=== PATIENT | female | born 1950 | race African-American/Black ===

== ENCOUNTER 2016-07-21 13:33 | Inpatient (IN) | payer OTHER, MEDICARE ==
[~2016-07-21] VITALS: Ht 162.6 cm; Wt 105.1 kg
[2016-08-10] MEDS ORDERED: MECL-62 PO (12:22)
[2016-08-10] MEDS ORDERED: AMOX500C PO (12:22)
[2016-08-10] MEDS ORDERED: INDO25CA PO (12:22)
[2016-08-10] MEDS ORDERED: ROBA750T PO (12:22)
[2016-08-10] MEDS ORDERED: ACET300T2 PO (12:22)
[2016-08-10] MEDS ORDERED: EPIN1INJ17 IM (12:22)
[2016-08-10] MEDS ORDERED: VENTAER INH (12:22)
[2016-08-10] MEDS ORDERED: TRIA1TAB5 PO (12:22)
--- NOTE | 2016-08-12 15:21 | MH ---
cc: DENEENOPALJAMIE Randall DATE OF ADMISSION: 08/13/2016 ADMISSION DIAGNOSIS Osteoarthritis of the right knee. HISTORY OF PRESENT ILLNESS This patient is a 66-year-old female who has longstanding arthritis in both of her knees. She feels the left is worse than right but both of them are fairly significant. The patient has had multiple falls and injuries to her knees. The patient had arthroscopic surgery right knee in the which did not relieve very much of her pain. The patient takes oral medications. The patient has had multiple cortisone injections but declines any further injections due to memory loss. The patient moved to this area from [facility] which she has had many years of conservative care. She is now felt to be a candidate for surgical treatment. PAST MEDICAL HISTORY See attached notes. SOCIAL HISTORY See attached notes. FAMILY HISTORY See attached notes. REVIEW OF SYSTEMS See attached notes. PHYSICAL EXAMINATION VITAL SIGNS: 5 feet 4 inches, 224 pounds, BMI 38.5. Blood pressure 138/84. HEENT: Normocephalic, atraumatic. Pupils equal, round and reactive to light and accommodation. Extraocular muscles intact. NECK: Supple. CHEST: Clear. HEART: Regular rate and rhythm. ABDOMEN: Soft, nontender. Normoactive bowel sounds. MUSCULOSKELETAL: The patient is an average build, overweight female. She is in moderate distress with her knees. HEENT: Normocephalic, atraumatic. Pupils equal, round and reactive to light and accommodation. Extraocular muscles intact. NECK: Supple. CHEST: Clear. HEART: Regular rate and rhythm. ABDOMEN: Soft, nontender. Normoactive bowel sounds. EXTREMITIES: Right Knee: There is an effusion, restricted range of motion. Flexion is limited on the right to 85 degrees. There is a 5 degree flexion contracture. Range of motion left knee is extension -5, flexion 95. Significant crepitus throughout range of motion. Neurologic and vascular examinations are within normal limits. IMPRESSION Osteoarthritis of both knees, severe. PLAN Right total knee replacement arthroplasty. CONSENT There are risks with surgery including infection, bleeding, loss of motion, continued pain, need for further surgery, neurologic or vascular injury. The patient understands these issues and wishes to press on with surgery as outlined above. Jamie MD ZI Garcia/THANH /1:56 PM /3:16 PM
[2016-08-13] MEDS ORDERED: CHLORHEXIDINE GLUCONATE 4% SOLN 120 ML BTL TOPICAL SCH (06:45)
[2016-08-13] MEDS ORDERED: ceFAZolin 2 GM PREMIX 50 ML IV SCH (06:45)
[2016-08-13] MEDS ORDERED: EXPAREL PERI-ARTICULAR INJECTION (TOTAL VOL. 60 ML) P-ARTICULR SCH ×2 (06:45)
[2016-08-13] MEDS ORDERED: VANCOMYCIN 1000 MG/NS 250 ML (for <70 kg) IV SCH ×2 (06:45)
[2016-08-13] MEDS ORDERED: TRANEXAMIC ACID INJ 975 MG in SODIUM CHLORIDE 0.9% INJ 100 ML IV SCH (06:45)
[2016-08-13 06:50] VITALS: BP 142/85; PULSE 89; RESP 24; TEMP 97.1; O2SAT 100
[2016-08-13] MEDS ORDERED: SODIUM CHLORID 0.9% 500 ML IV PRN (07:00)
[2016-08-13] MEDS ORDERED: METOPROLOL TARTRATE 25 MG TAB PO PRN (07:00)
[2016-08-13] MEDS ORDERED: CHLORHEXIDINE GLUCONATE 2 % 1 PACK (2 CLOTHS) TOPICAL PRN (07:00)
[2016-08-13] MEDS ORDERED: INSULIN HUMAN REGULAR 1,000 UNITS/10 ML VIAL SQ PRN (07:00)
[2016-08-13] MEDS ORDERED: LACTATED RINGER'S 1000 ML IV PRN (07:00)
[2016-08-13] MEDS ORDERED: DEXAMETHASONE SOD PHOS PF 10 MG/ML VIAL IV ONE (11:28)
[2016-08-13] MEDS ORDERED: BUPIVACAINE HCL PF 0.25% 30 ML VIAL NERV BLOCK ONE (11:28)
[2016-08-13] MEDS ORDERED: BUPIVACAINE LIPOSOME PF 1.3% 20 ML VIAL ONE (11:28)
[2016-08-13] MEDS ORDERED: GENTAMICIN SULFATE 80 MG/2 ML VIAL ONE (12:22)
[2016-08-13] MEDS ORDERED: PROPOFOL 200 MG/20 ML AMP IV ONE (12:34)
[2016-08-13] MEDS ORDERED: ePHEDrine/NS 25 MG/5 ML SYR IV ONE (12:34)
[2016-08-13] MEDS ORDERED: PHENYLEPH/NS 1000 MCG/10 ML SYR IV ONE (12:35)
[2016-08-13] MEDS ORDERED: ONDANSETRON HCL 4 MG/2 ML VIAL IV PUSH ONE (12:35)
[2016-08-13] MEDS ORDERED: LACTATED RINGER'S 1000 ML INJ 2,000 ML IV ONE (12:35)
[2016-08-13] MEDS ORDERED: MIDAZOLAM HCL 2 MG/2 ML VIAL ONE (12:59)
[2016-08-13] MEDS ORDERED: FAMOTIDINE 20 MG/2 ML VIAL ONE (13:00)
[2016-08-13] MEDS ORDERED: APREPITANT 40 MG CAP ONE (13:00)
[2016-08-13] MEDS ORDERED: ceFAZolin INJ 1,000 MG VIAL ONE (13:52)
[2016-08-13] MEDS ORDERED: SODIUM CHLORIDE 0.9% FLUSH 5 ML FLUSH IVF PRN (16:30)
[2016-08-13] MEDS ORDERED: MISCELLANEOUS PHARMACY INFORMATION XX ONE (16:30)
[2016-08-13] MEDS ORDERED: Post-op Orders (for Pharmacy) MISC XX ONE (16:30)
[2016-08-13] MEDS ORDERED: MORPHINE SULFATE 30 MG/30 ML PCA IV SCH (16:30)
[2016-08-13] MEDS ORDERED: METHOCARBAMOL 750 MG PO SCH (16:30)
[2016-08-13] MEDS ORDERED: NALOXONE HCL 0.4 MG/ML AMP IV PRN (16:30)
[2016-08-13] MEDS ORDERED: oxyCODONE/ACETAMINOPHEN 5 MG/325 MG TAB PO PRN (16:30)
[2016-08-13] MEDS ORDERED: MORPHINE SULFATE 8 MG/ML INJ IM PRN (16:30)
[2016-08-13] MEDS ORDERED: MISCELLANEOUS NURSING INFORMATION XX PRN (16:30)
[2016-08-13] MEDS ORDERED: TEMAZEPAM 15 MG CAP PO PRN (16:30)
[2016-08-13] MEDS ORDERED: OXYC1TAB63 PO (16:42)
[2016-08-13] MEDS ORDERED: XARE10TA PO (16:42)
--- NOTE | 2016-08-13 16:42 | PD.OP ---
cc: Trevor Salgado MD Operative Report Date of Surgery: Aug 13, 2016 Preoperative Diagnosis: Osteoarthritis right knee. Arthrofibrosis right knee Postoperative Diagnosis: Same Procedure: Right total knee replacement arthroplasty Anesthesia: Spinal with regional Surgeon: Trevor Salgado Chemist Instrumentation(s): JORGE LUIS James Operation and Findings: EBL: 100 cc INDICATION: This patient presents with long-standing arthritis of the knee. Attachment record documents conservative measures. The patient now presents for surgical treatment. NOTE: Astrid James PA-C was present for the entire surgical procedure as my assistant center director. In my medical opinion her skill and care was necessary for proper management of this patient. TOURNIQUET TIME: 72 minutes COMPANY: [employer] FEMUR: Size 3, posterior stabilized TIBIA: Size 3, fixed bearing PATELLA: 32 mm POLYETHYLENE INSERT: 9, posterior stabilized mm PROCEDURE: This patient was brought the operating room and anesthetized in the supine position. The patient was positioned supine on the table. The tourniquet was placed about the thigh, and the leg was scrubbed with alcohol followed by Hibiclens followed by ChloraPrep and draped sterilely. A timeout was done, and antibiotics were given. After exsanguination the tourniquet was inflated to 250 mmHg. An anterior incision was made and a median parapatellar arthrotomy was performed. The patella was released laterally and subluxed allowing freehand cut of the patella which was then sized. A metal cap was placed over the exposed patellar surface for protection. A police pilot hole was placed in the distal femur allowing a 5 valgus cut removing 10 mm from the distal femur. Anterior posterior and chamfer cuts were made. The posterior stabilize osteotomy was made. The attention was directed to the tibia. Retractors were positioned. The external alignment guide was used allowing the lateral tibia to be used as referencing guide and cut utilizing an oscillating saw taking care to avoid any injury to the surrounding soft tissues. This was sized properly. Trial reduction showed that the insert fit nicely. The patient had range of motion extension 0 flexion 125. Preoperatively the range of motion was extension -5, flexion 90. A medial release was not necessary. The bony surfaces prepared. On the back table 2 packets of methylmethacrylate were mixed. The components were cemented. Excess cement was removed. The tourniquet let down and hemostasis was controlled. The final plastic insert was inserted. Range of motion was the same as previously noted. A drain was brought through a separate stab incision. The arthrotomy was repaired with interrupted #1 Vicryl suture, subcutaneous tissue 2-0 Vicryl suture and skin with metallic pedro A sterile dressing was applied. Sponge counts, needle counts and instrument counts were all correct. The patient tolerated procedure well and was taken to recovery in satisfactory condition. FINDINGS: This patient had a very large posterior osteophyte. A complete posterior release was necessary. The patient range of motion prior to surgery was 85-90 in flexion. Following a posterior capsular release, PCL release and removal of the large posterior osteophytes and loose bodies, the flexion was excellent at 120. We downsized from a 4 to a #3 because the medial lateral width was too wide for a 4 and this allowed more room and flexion then otherwise might be normal anatomically. Trevor Salgado MD Aug 13, 2016 16:42
[2016-08-13] MEDS ORDERED: SODIUM CHLORIDE 0.9% IV SCH (17:00)
[2016-08-13] MEDS ORDERED: TRANEXAMIC ACID IV SCH (17:00)
[2016-08-13] MEDS: LACTATED RINGER'S 1000 ML INJ 1,000 ML IV SCH (17:26)
--- NOTE | 2016-08-13 17:37 | RADRPT ---
EXAM DATE/TIME: 08/13/2016 17:23 [facility] COMPARISON: No previous studies available for comparison. INDICATIONS : Evaluate post surgery right knee arthroplasty MEDICAL HISTORY : Arthritis. SURGICAL HISTORY : None. ENCOUNTER: Initial ACUITY: 1 day PAIN SCORE: 0/10 LOCATION: Right Knee FINDINGS: Patient is status post placement of a right knee prosthesis. There is good position and alignment of the prosthesis and bony structures. The bony structures are grossly intact. Postsurgical changes are present. CONCLUSION: Good position and alignment on this postoperative examination. Gaston Gonsalves MD on August 13, 2016 at 17:34 Board Certified Radiologist. This report was verified electronically.
[2016-08-13] MEDS ORDERED: DO NOT ADM ANY ANTICOAGULANT DRUGS PRN (18:15)
[2016-08-13] MEDS ORDERED: ALBUTEROL SULFATE 90 MCG/ACT HFA 18 GM INHALER INH PRN (18:30)
[2016-08-13] MEDS: MAGNESIUM HYDROXIDE SUSP 30 ML CUP PO SCH (20:08)
[2016-08-13] MEDS: SODIUM CHLORIDE 0.9% FLUSH 5 ML FLUSH IVF SCH (20:08)
[2016-08-13] MEDS: SENNOSIDES 8.6 MG TAB PO SCH (20:08)
[2016-08-13] MEDS: METHOCARBAMOL 500 MG TAB PO SCH (20:08)
[2016-08-13 20:15] VITALS: BP 129/68; PULSE 56; RESP 22; TEMP 97.5; O2SAT 96
[2016-08-13] MEDS: PCA - TOTAL MG MORPHINE DELIVERED PER SHIFT SCH (22:00)
[2016-08-14] VITALS (7 sets, daily range): BP systolic 123–156; BP diastolic 57–96; PULSE 58–82; RESP 16–20; TEMP 96–99.6; O2SAT 93–100
[2016-08-14] MEDS: METHOCARBAMOL 500 MG TAB PO SCH ×6 (00:30→22:15)
[2016-08-14] MEDS: LACTATED RINGER'S 1000 ML INJ 1,000 ML IV SCH ×2 (05:11→12:55)
[2016-08-14] MEDS: oxyCODONE/ACETAMINOPHEN 5 MG/325 MG TAB PO PRN ×2 (05:41→18:48)
[2016-08-14] MEDS: PCA - TOTAL MG MORPHINE DELIVERED PER SHIFT SCH (05:46)
[2016-08-14 07:27] LABS: HEMATOCRIT 30.8 % (35.0-46.0); REVIEW FLAG FINAL
[2016-08-14] MEDS ORDERED: CPMMACHINE (07:45)
[2016-08-14] MEDS ORDERED: WALKER WHEELS/F1 MIS (07:46)
[2016-08-14] MEDS ORDERED: COMMODE 3-IN-11 MIS (07:46)
--- NOTE | 2016-08-14 07:47 | HHI.DCPOC ---
Discharge Care Plan Diagnosis: (1) Right knee pain (2) Osteoarthritis of right knee Your Health Problems Are: Incision/Drains Inflammation Goals to Promote Your Health * To prevent worsening of your condition and complications * To maintain your health at the optimal level Directions to Meet Your Goals Take your medications as prescribed Follow your dietary instruction Follow activity as directed Keep your appointments as scheduled Take your immunizations and boosters as scheduled If your symptoms worsen call your PCP, if no PCP go to Urgent Care Center or Emergency Room Smoking is Dangerous to Your Health. Avoid second hand smoke Call the 24-hour hour crisis hotline for domestic abuse at [facility] Aug 14, 2016 07:47
--- NOTE | 2016-08-14 07:47 | HHI.DS ---
Discharge Summary Admission Date Aug 13, 2016 at 06:15 Discharge Date: Aug 16, 2016 Admitting Diagnosis see below Diagnosis: (1) Right knee pain Diagnosis: Principal (2) Osteoarthritis of right knee Diagnosis: Principal Procedures Right total knee arthroplasty Brief History This is a 66 year old female patient with a long history of bilateral knee osteoarthritis. She sought out treatment many years ago and was told at that point she likely needed knee replacement surgery. She choose to avoid surgery but has developed significant functional limitations over the last 2 years because of her knees. She sought out conservative measures all of which provide short term temporary relief. Recent xrays showed severe osteoarthritis of her right knee. Surgical treatment was recommended in the form of right total knee arthroplasty and she elected to move forward. CBC/BMP: 08/14/16 0649 Significant Findings Laboratory Tests Test 08/14/16 06:49 Hemoglobin 9.2 GM/DL (11.6-15.3) Hematocrit 30.8 % (35.0-46.0) Hospital Course Surgical treatment was performed on the day of admission without complication. She recovered well in PACU and was transferred to the orthopaedic floor. Pain was controlled with IV and oral medications. DVT prophylaxis was initiated pod# 1. She was not compliant with therapy day one but improved days 2 and 3. After 3 days she was found to be stable and discharged to a half-way facility. She was instructed to continue her therapy, continue xarelto for 15 days and to pursue a high fiber diet for the next 3-5 days. Pt Condition on Discharge: Stable Discharge Disposition: Discharge to SNF Discharge Instructions Diet Instructions: As Tolerated, No Restrictions, High Fiber Diet Activities You Can Perform: Weight Bearing as Antony Activities to Avoid: Strenuous Activity Additional Activity Instruc.: TKA protocol New Medications: Commode 3-in-1 (Commode 3-in-1) 1 Mis Mis 1 EA .ROUTE DIRECTED #1 Ref 0 EA CPM-Continuous Passive Motion Machine (CPM-Continuous Passive Motion Machine) 1 Ea Device 1 EA .ROUTE DIRECTED #1 Ref 0 EA Walker with Front Wheels (Walker with Front Wheels) 1 Mis Mis 1 EA .ROUTE DIRECTED #1 Ref 0 EA Oxycodone-Acetaminophen (Oxycodone-Acetaminophen) 5-325 mg Tab 1 TAB PO Q4H PRN PAIN LESS THAN 5 ON SCALE #50 TAB Rivaroxaban (Xarelto) 10 Mg Tab 10 MG PO Q24H Prevent Blood Clot #15 TAB Continued Medications: Acetaminophen-Codeine (Acetaminophen-Codeine) 300-30 mg Tab 1 TAB PO Q4H PRN pain Ref 0 TAB Albuterol 18 GM Inh (Ventolin Hfa 18 GM Inh) 90 Mcg/Act Aer 2 PUFF INH Q4H PRN SHORTNESS OF BREATH #1 Ref 0 INHALER Amoxicillin (Amoxicillin) 500 Mg Cap 500 MG PO QID Infection Ref 0 CAP Epinephrine Inj (Epinephrine Inj) 0.3 Mg/0.3 Ml Pfpen 0.3 MG IM ONCE PRN ALLERGIC REACTION #1 Ref 0 PEN Indomethacin (Indomethacin) 25 Mg Cap 25 MG PO TID Take with food, milk, or antacids to decrease stomach adverse effects. Pain Management Ref 0 CAP Meclizine (Meclizine) 25 Mg Tab 25 MG PO DAILY PRN VERTIGO Ref 0 TAB Methocarbamol (Robaxin) 750 Mg Tab 750 MG PO Q4H Muscle Spasm Ref 0 TAB Triamterene-Hydrochlorothiazide (Triamterene-Hydrochlorothiazide) 75-50 Mg Tab 1 TAB PO DAILY Blood Pressure Management #30 Ref 0 TAB [facility] De La Garza Aug 14, 2016 07:47
--- NOTE | 2016-08-14 07:54 | PD.ORT.PN ---
Subjective Subjective Remarks No complaints. She appears to be very comfortable. Objective Vitals Vital Signs Date Time Temp Pulse Resp B/P Pulse Ox O2 Delivery O2 Flow Rate FiO2 08/14/16 05:46 17 08/14/16 04:00 96.3 78 20 128/96 96 08/14/16 00:00 96.0 79 20 129/70 98 08/13/16 22:00 18 08/13/16 20:15 97.5 56 22 129/68 96 08/13/16 19:30 98.0 55 19 134/61 100 Nasal Cannula 2 08/13/16 19:00 60 22 146/64 100 Nasal Cannula 2 08/13/16 18:50 18 08/13/16 18:15 68 23 132/59 100 Nasal Cannula 2 08/13/16 18:00 68 23 128/64 100 Nasal Cannula 2 08/13/16 17:45 75 23 130/62 100 Nasal Cannula 2 08/13/16 17:30 76 22 120/62 99 Nasal Cannula 2 08/13/16 17:15 82 19 105/64 100 Nasal Cannula 2 08/13/16 17:10 97.5 85 19 121/64 100 Nasal Cannula 2 I/O 08/13/16 08/13/16 08/13/16 08/14/16 08/14/16 08/14/16 07:00 15:00 23:00 07:00 15:00 23:00 Intake Total 2978 ml 700 ml Output Total 890 ml 470 ml Balance 2088 ml 230 ml Intake Oral 600 ml 700 ml IV Total 278 ml Other 2100 ml Output Urine Total 700 ml 450 ml Drainage Total 90 ml 20 ml Estimated Blood Loss 100 ml # Bowel Movements 0 0 Result Diagram: 08/14/16 0649 Imaging Last 24 hours Impressions Knee X-Ray 08/13/16 1629 Signed Impressions: Service Date/Time: August 17:23 - CONCLUSION: Good position and alignment on this postoperative examination. Gaston Gonsalves MD Procedures Right total knee arthroplasty Objective Remarks Dressing dry. Minimal drainage. No abnormal swelling. X-ray looks fine. No calf tenderness. Negative Homans sign. Neuro exam normal Assessment & Plan Ortho Post Op Day #: 1 Problem List: (1) Right knee pain (2) Osteoarthritis of right knee Assessment and Plan Osteoarthritis right knee. Arthrofibrosis right knee. Right TKA: POD #1. PLAN: Weightbearing as tolerated History of sickle cell trait. Hemoglobin stable at greater than 9. No transfusions for this patient due to congregation choice. Xarelto for 15 days No dressing change DC drain DC PATENT PROSECUTION PARALEGAL Oral medications Probable discharge to SNF on Wednesday Trevor Salgado MD Aug 14, 2016 07:54
[2016-08-14] MEDS: MAGNESIUM HYDROXIDE SUSP 30 ML CUP PO SCH ×2 (08:14→22:15)
[2016-08-14] MEDS: TRIAMTERENE/HCTZ 75 MG/50 MG TAB PO SCH (08:14)
[2016-08-14] MEDS: SODIUM CHLORIDE 0.9% FLUSH 5 ML FLUSH IVF SCH ×2 (08:48→21:00)
[2016-08-14] MEDS: MECLIZINE HCL 25 MG TAB PO PRN ×2 (09:15→10:43)
[2016-08-14] MEDS ORDERED: ONDANSETRON HCL 4 MG/2 ML VIAL IV PUSH PRN (12:15)
[2016-08-14] MEDS: diphenhydrAMINE HCL 50 MG CAP PO PRN (12:53)
[2016-08-14] MEDS: RIVAROXABAN 10 MG TAB PO SCH (16:15)
[2016-08-14] MEDS: SENNOSIDES 8.6 MG TAB PO SCH (22:15)
[2016-08-15 00:10] VITALS: BP 128/60; PULSE 84; RESP 17; TEMP 99.1; O2SAT 95
[2016-08-15] MEDS: METHOCARBAMOL 500 MG TAB PO SCH ×6 (00:18→20:04)
[2016-08-15] MEDS: oxyCODONE/ACETAMINOPHEN 5 MG/325 MG TAB PO PRN ×4 (01:58→20:53)
[2016-08-15] MEDS: diphenhydrAMINE HCL 50 MG CAP PO PRN (02:05)
[2016-08-15] MEDS: LACTATED RINGER'S 1000 ML INJ 1,000 ML IV SCH ×2 (03:59→09:26)
[2016-08-15 04:30] VITALS: BP 137/72; PULSE 80; RESP 17; TEMP 97.8; O2SAT 95
[2016-08-15 07:46] LABS: HEMATOCRIT 30.5 % (35.0-46.0); REVIEW FLAG FINAL
[2016-08-15 08:00] VITALS: BP 116/56; PULSE 76; RESP 18; TEMP 98; O2SAT 96
--- NOTE | 2016-08-15 08:56 | PD.ORT.PN ---
Subjective Subjective Remarks No complaints. She appears to be very comfortable. She complained of dizziness yesterday which has resolved. Patient has history of vertigo Objective Vitals Vital Signs Date Time Temp Pulse Resp B/P Pulse Ox O2 Delivery O2 Flow Rate FiO2 08/15/16 08:00 98.0 76 18 116/56 96 08/15/16 04:30 97.8 80 17 137/72 95 08/15/16 02:58 18 08/15/16 00:10 99.1 84 17 128/60 95 08/14/16 20:41 21 08/14/16 20:40 99.6 70 17 132/62 97 08/14/16 20:40 Room Air 08/14/16 16:45 96.9 82 18 141/85 100 08/14/16 10:45 98.3 72 16 156/71 93 08/14/16 10:30 95 Nasal Cannula 2.00 I/O 08/14/16 08/14/16 08/14/16 08/15/16 08/15/16 08/15/16 07:00 15:00 23:00 07:00 15:00 23:00 Intake Total 700 ml 2133 ml 360 ml 240 ml Output Total 470 ml 325 ml Balance 230 ml 1808 ml 360 ml 240 ml Intake Oral 700 ml 600 ml 360 ml 240 ml IV Total 1533 ml Output Urine Total 450 ml 325 ml Drainage Total 20 ml # Voids 1 1 # Bowel Movements 0 0 0 Result Diagram: 08/15/16 0647 Imaging Last 24 hours Impressions Knee X-Ray 08/13/16 1629 Signed Impressions: Service Date/Time: August 17:23 - CONCLUSION: Good position and alignment on this postoperative examination. Gaston Gonsalves MD Procedures Right total knee arthroplasty Objective Remarks Dressing dry. Minimal drainage. No abnormal swelling. No calf tenderness. Negative Homans sign. Neuro exam normal Assessment & Plan Ortho Post Op Day #: 2 Problem List: (1) Right knee pain (2) Osteoarthritis of right knee Assessment and Plan Osteoarthritis right knee. Arthrofibrosis right knee. Right TKA: POD #1. PLAN: Weightbearing as tolerated History of sickle cell trait. Hemoglobin stable at greater than 9. No transfusions for this patient due to alevism choice. Xarelto for 15 days No dressing change Oral medications Probable discharge to SNF on Wednesday Trevor Salgado MD Aug 15, 2016 08:56
[2016-08-15] MEDS: SODIUM CHLORIDE 0.9% FLUSH 5 ML FLUSH IVF SCH ×2 (09:00→20:05)
[2016-08-15] MEDS: MAGNESIUM HYDROXIDE SUSP 30 ML CUP PO SCH ×2 (09:00→20:05)
[2016-08-15] MEDS: TRIAMTERENE/HCTZ 75 MG/50 MG TAB PO SCH (09:00)
[2016-08-15 12:00] VITALS: BP 120/56; PULSE 83; RESP 18; TEMP 98.4; O2SAT 96
[2016-08-15] MEDS: RIVAROXABAN 10 MG TAB PO SCH (15:31)
[2016-08-15 16:00] VITALS: BP 140/76; PULSE 93; RESP 18; TEMP 97.6; O2SAT 98
[2016-08-15] MEDS: SENNOSIDES 8.6 MG TAB PO SCH (20:05)
[2016-08-15 20:35] VITALS: BP 141/64; PULSE 89; RESP 18; TEMP 99.9; O2SAT 98
[2016-08-16 00:40] VITALS: BP 123/56; PULSE 84; RESP 18; TEMP 99.3; O2SAT 96
[2016-08-16] MEDS: oxyCODONE/ACETAMINOPHEN 5 MG/325 MG TAB PO PRN ×2 (00:44→10:42)
[2016-08-16] MEDS: METHOCARBAMOL 500 MG TAB PO SCH ×5 (04:49→15:38)
[2016-08-16] MEDS: diphenhydrAMINE HCL 50 MG CAP PO PRN (04:51)
[2016-08-16] MEDS: MECLIZINE HCL 25 MG TAB PO PRN (05:36)
[2016-08-16] MEDS: LACTATED RINGER'S 1000 ML INJ 1,000 ML IV SCH (07:05)
[2016-08-16] MEDS: TRIAMTERENE/HCTZ 75 MG/50 MG TAB PO SCH (07:39)
[2016-08-16] MEDS: SODIUM CHLORIDE 0.9% FLUSH 5 ML FLUSH IVF SCH (07:40)
[2016-08-16] MEDS: MAGNESIUM HYDROXIDE SUSP 30 ML CUP PO SCH (07:42)
[2016-08-16 08:00] VITALS: BP 129/75; PULSE 75; RESP 16; TEMP 97.2; O2SAT 95
--- NOTE | 2016-08-16 08:55 | PD.ORT.PN ---
Subjective Subjective Remarks No complaints. She appears to be very comfortable. No dizziness today Patient has history of vertigo Objective Vitals Vital Signs Date Time Temp Pulse Resp B/P Pulse Ox O2 Delivery O2 Flow Rate FiO2 08/16/16 07:47 Room Air 08/16/16 00:40 99.3 84 18 123/56 96 08/15/16 20:35 99.9 89 18 141/64 98 08/15/16 20:00 98 Room Air 08/15/16 16:00 97.6 93 18 140/76 98 08/15/16 12:00 98.4 83 18 120/56 96 I/O 08/15/16 08/15/16 08/15/16 08/16/16 08/16/16 08/16/16 07:00 15:00 23:00 07:00 15:00 23:00 Intake Total 240 ml 750 ml 240 ml 240 ml Balance 240 ml 750 ml 240 ml 240 ml Intake Oral 240 ml 750 ml 240 ml 240 ml # Voids 1 3 0 1 # Bowel Movements 0 2 0 0 Result Diagram: 08/15/16 0647 Imaging Last 24 hours Impressions Knee X-Ray 08/13/16 1629 Signed Impressions: Service Date/Time: August 17:23 - CONCLUSION: Good position and alignment on this postoperative examination. Gaston Gonsalves MD Procedures Right total knee arthroplasty Objective Remarks Dressing dry. Minimal drainage. No abnormal swelling. No calf tenderness. Negative Homans sign. Neuro exam normal Assessment & Plan Ortho Post Op Day #: 3 Problem List: (1) Right knee pain (2) Osteoarthritis of right knee Assessment and Plan Osteoarthritis right knee. Arthrofibrosis right knee. Right TKA: POD #3. PLAN: Weightbearing as tolerated History of sickle cell trait. Hemoglobin stable at greater than 9. No transfusions for this patient due to sabianist choice. Xarelto for 15 days No dressing change Oral medications Discharge to SNF today Trevor Salgado MD Aug 16, 2016 08:55
--- NOTE | 2016-08-16 08:56 | HHI.DCPOC ---
Discharge Care Plan Diagnosis: (1) Osteoarthritis of right knee Goals to Promote Your Health * To prevent worsening of your condition and complications * To maintain your health at the optimal level Directions to Meet Your Goals Take your medications as prescribed Follow your dietary instruction Follow activity as directed Keep your appointments as scheduled Take your immunizations and boosters as scheduled If your symptoms worsen call your PCP, if no PCP go to Urgent Care Center or Emergency Room Smoking is Dangerous to Your Health. Avoid second hand smoke Call the 24-hour hour crisis hotline for domestic abuse at Trevor Salgado MD Aug 16, 2016 08:56
[2016-08-16 11:00] VITALS: BP 109/82; PULSE 91; RESP 16; TEMP 97; O2SAT 99
[2016-08-16] MEDS: RIVAROXABAN 10 MG TAB PO SCH (15:38)
== END 2016-08-16 15:54 | DRG 470 ==
LOC: HSDI 08-13 06:15 → N06B 08-13 20:01
PROVIDERS: ADMIT Orthopaedic Surgery Orthopaedic Surgery of the Spine; ATTEND Orthopaedic Surgery Orthopaedic Surgery of the Spine
PROC: 3E0T3CZ (ICD-10-PCS; 2016-08-13)
PROC: 0SRC0J9 Replacement of Right Knee Joint with Synthetic Substitute, Cemented, Open Approach (ICD-10-PCS; principal; 2016-08-13 13:41)
DX: M17.0 Bilateral primary osteoarthritis of knee (principal); D57.3 Sickle-cell trait; R29.6 Repeated falls
CPT/HCPCS: 73560; 85014; 85018; 94150; C1776; C9290; J0690; J1100; J1580; J2250; J2270; J2370; J2405; J3370; J7050; J7120; J8501; L1830; Q0163

== ENCOUNTER 2016-12-01 06:37 | Inpatient (IN) | payer OTHER, MEDICARE ==
[~2016-12-01] VITALS: Ht 162.6 cm; Wt 100.8 kg
[~2016-12-01 06:37] MED LIST: ACET300T2 PO; AMOX500C PO; COMMODE 3-IN-11 MIS; EPIN1INJ17 IM; INDO25CA PO; MECL-62 PO; OXYC1TAB63 PO; ROBA750T PO; TRIA1TAB5 PO; VENTAER INH; WALKER WHEELS/F1 MIS; XARE10TA PO
[2016-12-01] MEDS ORDERED: GENTAMICIN SULFATE 80 MG/2 ML VIAL ONE (07:01)
[2016-12-01] MEDS ORDERED: ceFAZolin 2 GM PREMIX 50 ML IV SCH (07:15)
[2016-12-01] MEDS ORDERED: VANCOMYCIN 1000 MG/NS 250 ML (for <70 kg) IV SCH ×2 (07:15)
[2016-12-01] MEDS ORDERED: POVIDONE IODINE 7.5% SCRUB 118 ML BOTTLE TOPICAL SCH (07:15)
[2016-12-01] MEDS ORDERED: SODIUM CHLORID 0.9% 500 ML IV PRN (07:15)
[2016-12-01] MEDS ORDERED: CHLORHEXIDINE GLUCONATE 2 % 1 PACK (2 CLOTHS) TOPICAL PRN (07:15)
[2016-12-01] MEDS ORDERED: INSULIN HUMAN REGULAR 1,000 UNITS/10 ML VIAL SQ PRN (07:15)
[2016-12-01] MEDS ORDERED: METOPROLOL TARTRATE 25 MG TAB PO PRN (07:15)
[2016-12-01] MEDS ORDERED: LACTATED RINGER'S 1000 ML IV PRN (07:15)
[2016-12-01] MEDS ORDERED: POVIDONE IODINE 5% (ANTISEPSIS KIT) 4 APPLICATIONS EACH NARE PRN (07:15)
[2016-12-01] MEDS ORDERED: DIPH25CA PO (07:48)
[2016-12-01] MEDS ORDERED: TRANEXAMIC ACID IV SCH (08:00)
[2016-12-01] MEDS ORDERED: EXPAREL PERI-ARTICULAR INJECTION (TOTAL VOL. 60 ML) P-ARTICULR SCH ×2 (08:00)
[2016-12-01] MEDS ORDERED: SODIUM CHLORIDE 0.9% IV SCH (08:00)
--- NOTE | 2016-12-01 08:32 | MH ---
cc: JAMIE GARRIDO M.D. DATE OF ADMISSION: 12/01/2016 ADMITTING DIAGNOSIS Left total knee replacement arthroplasty. HISTORY This is a 66-year-old female status post previous right total knee replacement arthroplasty in August of this year. She has done well. She has a known history of anemia. She is having progressive varus deformity of the left knee and pain with range of motion. Investigative studies are consistent with extensive arthritis. The patient presents now for surgical treatment. PAST MEDICAL HISTORY, SOCIAL HISTORY, FAMILY HISTORY, REVIEW OF SYSTEMS See attached notes. PHYSICAL EXAMINATION GENERAL: Average build female in moderate distress with her left knee. HEENT: Normocephalic, atraumatic. Pupils equal, round, reactive to light and accommodation. Extraocular motions intact. NECK: Supple. CHEST: Clear. HEART: Regular rate and rhythm. ABDOMEN: Soft, nontender with normoactive bowel sounds. MUSCULOSKELETAL EXAMINATION: Left knee - Pain with range of motion, mild deformity. Crepitus to range of motion. Neurologic and vascular examination within normal limits. IMPRESSION Left knee osteoarthritis. PLAN Left total knee replacement arthroplasty. CONSENT There are risks with surgery including infection, bleeding, loss of motion, continued pain, need for further surgery, neurologic and vascular injury. The patient understands these issues and wishes to press on with the surgery as outlined above. MD ZI Brewer/NILDA /11:17 PM /8:24 AM
[2016-12-01] MEDS ORDERED: BUPIVACAINE HCL PF 0.5% 30 ML VIAL ONE ×2 (08:57→08:59)
[2016-12-01] MEDS ORDERED: BUPIVACAINE HCL PF 0.25% 30 ML VIAL ONE (08:58)
[2016-12-01] MEDS ORDERED: PROPOFOL 500 MG/50 ML INJ 100 ML ONE (09:05)
[2016-12-01] MEDS ORDERED: ALBUTEROL SULFATE 90 MCG/ACT HFA 8 GM INHALER INH PRN (11:30)
--- NOTE | 2016-12-01 11:37 | PD.OP ---
cc: Trevor Salgado MD Operative Report Date of Surgery: Dec 01, 2016 Preoperative Diagnosis: Osteoarthritis left knee Postoperative Diagnosis: Same Procedure: Left total knee replacement arthroplasty Anesthesia: Spinal with regional block for pain control Surgeon: Trevor Salgado Director Of Casework Services(s): JORGE LUIS James Operation and Findings: EBL: 100 cc INDICATION: This patient presents with long-standing arthritis of the knee. Attachment record documents conservative measures. The patient now presents for surgical treatment. She has had a previous right total knee replacement arthroplasty performed approximately 4 months ago. She has done well. NOTE: Astrid James PA-C was present for the entire surgical procedure as my clinical trials assistant. In my medical opinion her skill and care was necessary for proper management of this patient. TOURNIQUET TIME: 52 minutes COMPANY: [employer] FEMUR: Size 3, posterior stabilized TIBIA: Size 3, fixed bearing PATELLA: 32 mm POLYETHYLENE INSERT: 11 mm PROCEDURE: This patient was brought the operating room and anesthetized in the supine position. The patient was positioned supine on the table. The tourniquet was placed about the thigh, and the leg was scrubbed with alcohol followed by Hibiclens followed by ChloraPrep and draped sterilely. A timeout was done, and antibiotics were given. After exsanguination the tourniquet was inflated to 250 mmHg. An anterior incision was made and a median parapatellar arthrotomy was performed. The patella was released laterally and subluxed allowing freehand cut of the patella which was then sized. A metal cap was placed over the exposed patellar surface for protection. A packing machine pilot can router hole was placed in the distal femur allowing a 5 valgus cut removing 10 mm from the distal femur. Anterior posterior and chamfer cuts were made. The posterior stabilize osteotomy was made. The attention was directed to the tibia. Retractors were positioned. The external alignment guide was used allowing the lateral tibia to be used as referencing guide and cut utilizing an oscillating saw taking care to avoid any injury to the surrounding soft tissues. This was sized properly. Trial reduction showed that the insert fit nicely. The patient had range of motion extension 0 flexion 120. A medial release was not necessary. The bony surfaces prepared. On the back table 2 packets of methylmethacrylate were mixed. The components were cemented. Excess cement was removed. The tourniquet let down and hemostasis was controlled. The final plastic insert was inserted. Range of motion was the same as previously noted. A drain was brought through a separate stab incision. The arthrotomy was repaired with interrupted #1 Vicryl suture, subcutaneous tissue 2-0 Vicryl suture and skin with metallic pedro A sterile dressing was applied. Sponge counts, needle counts and instrument counts were all correct. The patient tolerated procedure well and was taken to recovery in satisfactory condition. FINDINGS: There was severe osteoarthritis with large circumferential osteophytes and large bony posterior osteophytes and a large loose body. Likely this contributed to restricted motion, especially in flexion. The final solution was excellent. There did not appear to be any comp location that was perceived. Trevor Salgado MD Dec 01, 2016 11:37
[2016-12-01] MEDS ORDERED: OXYC1TAB63 PO (11:39)
[2016-12-01] MEDS ORDERED: XARE10TA PO (11:39)
[2016-12-01] MEDS ORDERED: TEMAZEPAM 15 MG CAP PO PRN (11:45)
[2016-12-01] MEDS ORDERED: NALOXONE HCL 0.4 MG/ML AMP IV PUSH PRN (11:45)
[2016-12-01] MEDS ORDERED: MORPHINE SULFATE 8 MG/ML INJ IM PRN (11:45)
[2016-12-01] MEDS ORDERED: MISCELLANEOUS NURSING INFORMATION XX PRN (11:45)
[2016-12-01] MEDS ORDERED: MISCELLANEOUS PHARMACY INFORMATION XX ONE (11:45)
[2016-12-01] MEDS ORDERED: SODIUM CHLORIDE 0.9% FLUSH 5 ML FLUSH IVF PRN (11:45)
[2016-12-01] MEDS ORDERED: Post-op Orders (for Pharmacy) MISC XX ONE (11:54)
[2016-12-01] MEDS ORDERED: DO NOT ADM ANY ANTICOAGULANT DRUGS PRN (13:15)
--- NOTE | 2016-12-01 13:37 | RADRPT ---
EXAM DATE/TIME: 12/01/2016 12:48 [facility] COMPARISON: No previous studies available for comparison. INDICATIONS : Post op left knee MEDICAL HISTORY : None. SURGICAL HISTORY : left knee replacement ENCOUNTER: Initial ACUITY: 1 day PAIN SCORE: Non-responsive. LOCATION: Left knee FINDINGS: Postoperative left total knee arthroplasty with orthotopic alignment and intact tibial and femoral co mponents. Multiple skin pedro are present vertical midline incision and there is a surgical drain in the suprapatellar region. CONCLUSION: Expected postsurgical changes status post total knee arthroplasty. Mark Veras MD on December 01, 2016 at 13:35 Board Certified Radiologist. This report was verified electronically.
[2016-12-01] MEDS: PCA - TOTAL MG MORPHINE DELIVERED PER SHIFT SCH ×2 (14:00→22:00)
[2016-12-01] MEDS: MORPHINE SULFATE 30 MG/30 ML PCA IV SCH (14:45)
[2016-12-01] MEDS: LACTATED RINGER'S 1000 ML INJ 1,000 ML IV SCH (14:45)
[2016-12-01 17:10] VITALS: BP 147/63; PULSE 62; RESP 16; TEMP 97.1; O2SAT 95
[2016-12-01 19:00] VITALS: BP 137/63; PULSE 80; RESP 18; TEMP 97.2; O2SAT 91
[2016-12-01] MEDS: SENNOSIDES 8.6 MG TAB PO SCH ×3 (20:49→21:00)
[2016-12-01] MEDS: MAGNESIUM HYDROXIDE SUSP 30 ML CUP PO SCH (20:49)
[2016-12-01] MEDS: SODIUM CHLORIDE 0.9% FLUSH 5 ML FLUSH IVF SCH (20:51)
[2016-12-01] MEDS ORDERED: MECLIZINE HCL 25 MG TAB PO PRN (22:30)
[2016-12-01] MEDS ORDERED: ONDANSETRON HCL 4 MG/2 ML VIAL IV PUSH PRN (22:30)
[2016-12-02] VITALS (7 sets, daily range): BP systolic 116–146; BP diastolic 56–67; PULSE 95–110; RESP 13–18; TEMP 97.4–99.6; O2SAT 93–97
[2016-12-02] MEDS: LACTATED RINGER'S 1000 ML INJ 1,000 ML IV SCH ×2 (00:01→12:31)
[2016-12-02] MEDS: CYCLOBENZAPRINE HCL 10 MG TAB PO PRN ×3 (00:49→22:47)
[2016-12-02] MEDS: diphenhydrAMINE HCL 25 MG CAP PO PRN ×2 (00:52→17:49)
[2016-12-02] MEDS: PCA - TOTAL MG MORPHINE DELIVERED PER SHIFT SCH ×2 (05:13→14:00)
[2016-12-02 07:59] LABS: HEMATOCRIT 27.3 % (35.0-46.0); REVIEW FLAG FINAL
[2016-12-02] MEDS: SODIUM CHLORIDE 0.9% FLUSH 5 ML FLUSH IVF SCH ×2 (09:00→21:00)
[2016-12-02] MEDS: oxyCODONE/ACETAMINOPHEN 5 MG/325 MG TAB PO PRN ×3 (09:01→22:48)
[2016-12-02] MEDS: MAGNESIUM HYDROXIDE SUSP 30 ML CUP PO SCH ×2 (09:02→21:00)
[2016-12-02] MEDS: TRIAMTERENE/HCTZ 75 MG/50 MG TAB PO SCH (09:02)
[2016-12-02] MEDS ORDERED: CPMMACHINE (09:09)
--- NOTE | 2016-12-02 09:09 | HHI.DCPOC ---
Discharge Care Plan Diagnosis: (1) Osteoarthritis of left knee Your Health Problems Are: Anxiety Incision/Drains Swelling Goals to Promote Your Health * To prevent worsening of your condition and complications * To maintain your health at the optimal level Directions to Meet Your Goals Take your medications as prescribed Follow your dietary instruction Follow activity as directed Keep your appointments as scheduled Take your immunizations and boosters as scheduled If your symptoms worsen call your PCP, if no PCP go to Urgent Care Center or Emergency Room Smoking is Dangerous to Your Health. Avoid second hand smoke Call the 24-hour hour crisis hotline for domestic abuse at [facility] Dec 02, 2016 09:09
--- NOTE | 2016-12-02 09:13 | HHI.DS ---
Discharge Summary Admission Date Dec 01, 2016 at 06:37 Discharge Date: Dec 04, 2016 Admitting Diagnosis see below Diagnosis: (1) Osteoarthritis of left knee Diagnosis: Principal ICD Codes: M17.12 - Unilateral primary osteoarthritis, left knee Procedures Left total knee arthroplasty Brief History This is a 66 year old female patient with a history of bilateral knee pain for many years. She had conservative care for quite some time and eventually came to right total knee arthroplasty in spring of this year. She recovered well and due to her left knee pain, elected to move forward with left total knee arthroplasty. She now presents for the above. CBC/BMP: 12/02/16 0706 Significant Findings Laboratory Tests Test 12/02/16 07:06 Hemoglobin 8.4 GM/DL (11.6-15.3) Hematocrit 27.3 % (35.0-46.0) Hospital Course Surgical treatment was performed on the day of admission without complication. She recovered well in PACU and was transferred to the orthopaedic floor. Pain was controlled with IV and oral medications. DVT prophylaxis was initiated pod# 1 with xarelto. She was compliant with physical therapy and all TKA restrictions. After 3 days she was found to be stable and discharged to a alf facility. She was instructed to continue physical therapy for her knee, to avoid dressing changes unless her dressing was saturated, and to pursue a high fiber diet for 3-5 days. She was given prescriptions of xarelto 10mg and percocet 5mg to be filled outpatient. Pt Condition on Discharge: Stable Discharge Disposition: Discharge to SNF Discharge Instructions Diet Instructions: As Tolerated, No Restrictions, High Fiber Diet Activities You Can Perform: Weight Bearing as Antony Activities to Avoid: Strenuous Activity Additional Activity Instruc.: TKA protocol New Medications: CPM-Continuous Passive Motion Machine (CPM-Continuous Passive Motion Machine) 1 Ea Device EA .ROUTE DIRECTED, #1 0 Refills Oxycodone-Acetaminophen (Oxycodone-Acetaminophen) 5-325 mg Tab 1 TAB PO Q4H PRN for PAIN, #50 TAB Rivaroxaban (Xarelto) 10 Mg Tab 10 MG PO Q24H for Prevent Blood Clot, #15 TAB Continued Medications: Albuterol 18 GM Inh (Ventolin Hfa 18 GM Inh) 90 Mcg/Act Aer 2 PUFF INH Q4H PRN for SHORTNESS OF BREATH, #1 INHALER 0 Refills Diphenhydramine (Diphenhydramine) 25 Mg Cap 25 MG PO Q4H PRN for ALLERGIES, CAP 0 Refills Epinephrine Inj (Epinephrine Inj) 0.3 Mg/0.3 Ml Pfpen 0.3 MG IM ONCE PRN for ALLERGIC REACTION, #1 PEN 0 Refills Indomethacin (Indomethacin) 25 Mg Cap 25 MG PO TID for Pain Management, CAP 0 Refills Take with food, milk, or antacids to decrease stomach adverse effects. Triamterene-Hydrochlorothiazide (Triamterene-Hydrochlorothiazide) 75-50 Mg Tab 1 TAB PO DAILY for Blood Pressure Management, #30 TAB 0 Refills Serene De La Garza Dec 02, 2016 09:13
[2016-12-02] MEDS: MORPHINE SULFATE 30 MG/30 ML PCA IV SCH (09:33)
[2016-12-02] MEDS: RIVAROXABAN 10 MG TAB PO SCH (11:30)
--- NOTE | 2016-12-02 12:03 | PD.ORT.PN ---
Subjective Subjective Remarks Pt was seen by Dr. Trevor Salgado today. Moderate left knee pain. She states its 'as expected'. Some nausea last night. No new radiating leg pain. Some cramping. She denies any new CP, SOB or abd pain. Objective Vitals Vital Signs Date Time Temp Pulse Resp B/P (MAP) Pulse Ox O2 Delivery O2 Flow Rate FiO2 12/02/16 09:33 16 12/02/16 09:10 95 Nasal Cannula 2.00 12/02/16 08:00 98.0 95 16 139/66 (90) 95 12/02/16 05:13 17 12/02/16 04:20 97.4 96 18 116/56 (76) 97 12/02/16 00:00 97.8 101 18 141/67 (91) 93 12/01/16 22:00 18 12/01/16 21:34 Nasal Cannula 2.00 12/01/16 19:00 97.2 80 18 137/63 (87) 91 12/01/16 17:10 97.1 62 16 147/63 (91) 95 12/01/16 14:45 14 12/01/16 14:00 72 14 135/64 (87) 95 Room Air 12/01/16 13:30 97.7 12/01/16 13:30 65 14 133/58 (83) 96 Room Air 12/01/16 13:15 97.7 61 15 125/61 (82) 95 Room Air 12/01/16 13:00 56 15 126/60 (82) 95 Room Air 12/01/16 12:45 57 14 125/61 (82) 96 Room Air 12/01/16 12:30 65 15 127/60 (82) 95 Room Air 12/01/16 12:15 77 18 112/55 (74) 95 Room Air 12/01/16 12:05 95.8 12/01/16 12:02 95.8 78 14 113/62 (79) 99 Simple Mask 6 I/O 12/01/16 12/01/16 12/01/16 12/02/16 12/02/16 12/02/16 07:00 15:00 23:00 07:00 15:00 23:00 Intake Total 1400 ml 930 ml 240 ml Output Total 500 ml 1520 ml 520 ml Balance 900 ml -590 ml -280 ml Intake Oral 600 ml 240 ml IV Total 330 ml Other 1400 ml Output Urine Total 400 ml 1400 ml 500 ml Drainage Total 120 ml 20 ml Estimated Blood Loss 100 ml # Bowel Movements 0 0 Result Diagram: 12/02/16 0706 Procedures Left total knee arthroplasty Objective Remarks Laying in bed NAD VSS LLE Knee dressing intact, drain site clean (drain removed, site dressed), mild swelling, no erythema thigh and calf supple, neg homans +motor at, +sens, +nvi Assessment & Plan Ortho Post Op Day #: 1 Problem List: (1) Osteoarthritis of left knee ICD Codes: M17.12 - Unilateral primary osteoarthritis, left knee Qualifiers: Qualified Codes: M17.12 - Unilateral primary osteoarthritis, left knee Assessment and Plan pod#1 s/p L TKA Pt seen and examined by Dr. Trevor Salgado. Moderate knee pain. No new complaints. D/C [employer] this afternoon - change to po pain meds. On percocet 5mg. Hold incision dressing changes. Ok to change drain site if needed. PT - WBAT LLE. TKA precautions. Xarelto 10mg for 2 weeks. D/C planning, SNF wednesday. Pt has DME from previous TKA earlier this year. Serene De La Garza Dec 02, 2016 12:03
--- NOTE | 2016-12-02 15:26 | OTSOAPIP ---
TIME SESSION COMPLETED: 1104 TREATMENT TIME: 0 MINS. CHART REVIEWED. S: "I DON'T' NEED ANY OCCUPATIONAL THERAPY. I WORKED IN A HOSPITAL FOR YEARS, AND I ONLY NEED PHYSICAL THERAPY" O: RECEIVED ORDERS FOR OCCUPATIONAL THERAPY. ATTEMPTED TO SEE PT AND PT ADAMANTLY DECLINED OT SERVICES DEPSITE EXPLAINATION OF SERVICES. P: WILL SIGN OFF. _ Therapist: ELOISE SORIA OT/L Signature on file
[2016-12-02] MEDS: SENNOSIDES 8.6 MG TAB PO SCH ×2 (21:00→22:48)
[2016-12-03] VITALS (8 sets, daily range): BP systolic 100–156; BP diastolic 46–91; PULSE 86–109; RESP 17–18; TEMP 97.7–99.5; O2SAT 91–97
[2016-12-03] MEDS: LACTATED RINGER'S 1000 ML INJ 1,000 ML IV SCH ×3 (01:01→21:07)
[2016-12-03] MEDS: oxyCODONE/ACETAMINOPHEN 5 MG/325 MG TAB PO PRN ×4 (05:17→17:44)
[2016-12-03] MEDS: SODIUM CHLORIDE 0.9% FLUSH 5 ML FLUSH IVF SCH ×2 (09:00→21:07)
[2016-12-03] MEDS: CYCLOBENZAPRINE HCL 10 MG TAB PO PRN (09:31)
[2016-12-03] MEDS: MAGNESIUM HYDROXIDE SUSP 30 ML CUP PO SCH ×2 (09:43→21:04)
[2016-12-03] MEDS: TRIAMTERENE/HCTZ 75 MG/50 MG TAB PO SCH (09:44)
[2016-12-03 09:57] LABS: HEMATOCRIT 26.6 % (35.0-46.0); REVIEW FLAG FINAL
[2016-12-03] MEDS: RIVAROXABAN 10 MG TAB PO SCH (13:34)
--- NOTE | 2016-12-03 14:20 | PD.ORT.PN ---
Subjective Subjective Remarks Pt was just starting her PT class. I was able to speak to her in the room before they began. She continues to have moderate left knee pain. She did not do PT yesterday but feels 'more motivated' today. She denies any new CP, SOB or abd pain. Objective Vitals Vital Signs Date Time Temp Pulse Resp B/P (MAP) Pulse Ox O2 Delivery O2 Flow Rate FiO2 12/03/16 11:54 98.1 103 17 100/46 (64) 95 12/03/16 09:13 97 21 12/03/16 07:55 99.5 102 17 130/59 (82) 97 12/03/16 04:19 98.6 105 18 136/63 (87) 97 12/03/16 00:30 99.5 100 18 156/68 (97) 95 12/02/16 19:25 99.6 97 13 134/59 (84) 95 12/02/16 19:15 Room Air 12/02/16 16:10 97.6 95 14 146/65 (92) 96 I/O 12/02/16 12/02/16 12/02/16 12/03/16 12/03/16 12/03/16 07:00 15:00 23:00 07:00 15:00 23:00 Intake Total 240 ml 480 ml 240 ml 240 ml Output Total 520 ml Balance -280 ml 480 ml 240 ml 240 ml Intake Oral 240 ml 480 ml 240 ml 240 ml Output Urine Total 500 ml Drainage Total 20 ml # Voids 1 1 1 2 # Bowel Movements 0 0 0 0 0 Result Diagram: 12/03/16 0829 Procedures Left total knee arthroplasty Objective Remarks Sitting in chair in PT class, NAD VSS LLE Knee dressing intact, drain site clean/dressed, no drainage, moderate swelling, no erythema thigh and calf supple, neg homans +motor at, +sens, +nvi Assessment & Plan Ortho Post Op Day #: 2 Problem List: (1) Osteoarthritis of left knee ICD Codes: M17.12 - Unilateral primary osteoarthritis, left knee Qualifiers: Qualified Codes: M17.12 - Unilateral primary osteoarthritis, left knee Assessment and Plan pod#2 s/p L TKA Ortho stable. Moderate left knee pain. History of chronic anemia as she has sickle cell trait. Preop Hg 9.5, now 8.2. No transfusion needed. PO pain meds. On percocet 5mg. Hold incision dressing changes. Ok to change drain site if needed. PT - WBAT LLE. TKA precautions. Xarelto 10mg for 2 weeks. D/C planning, SNF tomorrow. Pt has DME from previous TKA earlier this year. Serene De La Garza Dec 03, 2016 14:20
[2016-12-03] MEDS: SENNOSIDES 8.6 MG TAB PO SCH (21:04)
[2016-12-03] MEDS: diphenhydrAMINE HCL 25 MG CAP PO PRN (22:32)
[2016-12-04] MEDS: oxyCODONE/ACETAMINOPHEN 5 MG/325 MG TAB PO PRN ×3 (02:02→10:18)
[2016-12-04 03:49] VITALS: BP 123/62; PULSE 84; RESP 18; TEMP 98.4; O2SAT 92
--- NOTE | 2016-12-04 07:11 | PD.ORT.PN ---
Subjective Subjective Remarks POD 3 s/p Left TKA by Dr Trevor Salgado doing well. states out of bed with therapy. planning on going to SNF today Objective Vitals Vital Signs Date Time Temp Pulse Resp B/P (MAP) Pulse Ox O2 Delivery O2 Flow Rate FiO2 12/04/16 03:49 98.4 84 18 123/62 (82) 92 12/03/16 23:25 98.9 86 18 135/63 (87) 94 12/03/16 19:25 99.2 105 18 111/91 (98) 96 12/03/16 15:29 97.7 109 17 118/58 (78) 91 12/03/16 11:54 98.1 103 17 100/46 (64) 95 12/03/16 09:13 97 21 12/03/16 07:55 99.5 102 17 130/59 (82) 97 I/O 12/03/16 12/03/16 12/03/16 12/04/16 12/04/16 12/04/16 07:00 15:00 23:00 07:00 15:00 23:00 Intake Total 240 ml 480 ml 480 ml Balance 240 ml 480 ml 480 ml Intake Oral 240 ml 480 ml 480 ml # Voids 1 2 2 1 # Bowel Movements 0 0 0 0 Result Diagram: 12/03/16 0829 Procedures Left total knee arthroplasty Objective Remarks Sitting in chair in PT class, NAD VSS LLE Knee dressing intact, drain site clean/dressed, no drainage, moderate swelling, no erythema thigh and calf supple, neg homans +motor at, +sens, +nvi Assessment & Plan Problem List: (1) Osteoarthritis of left knee ICD Codes: M17.12 - Unilateral primary osteoarthritis, left knee Qualifiers: Qualified Codes: M17.12 - Unilateral primary osteoarthritis, left knee Assessment and Plan pod#3 s/p L TKA Ortho stable. Moderate left knee pain. History of chronic anemia as she has sickle cell trait. Preop Hg 9.5, now 8.2. No transfusion needed. PO pain meds. On percocet 5mg. Hold incision dressing changes. Ok to change drain site if needed. PT - WBAT LLE. TKA precautions. Xarelto 10mg for 2 weeks. D/C planning, SNF today Pt has DME from previous TKA earlier this year. Michael Nickerson Dec 04, 2016 07:11
[2016-12-04 07:15] LABS: HEMATOCRIT 25.7 % (35.0-46.0); REVIEW FLAG FINAL
[2016-12-04 07:52] VITALS: BP 99/34; PULSE 94; RESP 19; TEMP 99.2; O2SAT 95
[2016-12-04 08:10] VITALS: BP 100/52; PULSE 95; RESP 18; TEMP 98
[2016-12-04] MEDS: SODIUM CHLORIDE 0.9% FLUSH 5 ML FLUSH IVF SCH (09:00)
[2016-12-04] MEDS: TRIAMTERENE/HCTZ 75 MG/50 MG TAB PO SCH (09:00)
[2016-12-04] MEDS: RIVAROXABAN 10 MG TAB PO SCH (10:15)
[2016-12-04] MEDS: diphenhydrAMINE HCL 25 MG CAP PO PRN (10:15)
[2016-12-04] MEDS: MAGNESIUM HYDROXIDE SUSP 30 ML CUP PO SCH (10:21)
== END 2016-12-04 12:32 | DRG 470 ==
LOC: HSDI 06:37 → N06B 16:45
PROVIDERS: ADMIT Orthopaedic Surgery Orthopaedic Surgery of the Spine; ATTEND Orthopaedic Surgery Orthopaedic Surgery of the Spine
PROC: 3E0T3BZ Introduction of Anesthetic Agent into Peripheral Nerves and Plexi, Percutaneous Approach (ICD-10-PCS; 2016-12-01)
PROC: 0SRD0J9 Replacement of Left Knee Joint with Synthetic Substitute, Cemented, Open Approach (ICD-10-PCS; principal; 2016-12-01 09:00)
DX: M17.12 Unilateral primary osteoarthritis, left knee (principal); I10 Essential (primary) hypertension; M21.162 Varus deformity, not elsewhere classified, left knee; D64.9 Anemia, unspecified; D57.3 Sickle-cell trait; Z88.2 Allergy status to sulfonamides; Z91.041 Radiographic dye allergy status; Z88.8 Allergy status to other drugs, medicaments and biological substances
CPT/HCPCS: 73560; 85014; 85018; 94150; C9290; J0690; J1580; J2270; J2405; J3370; J7050; J7120

== ENCOUNTER 2017-01-29 13:12 | Emergency (ER) | payer OTHER, MEDICAID ==
[~2017-01-29] VITALS: Ht 162.6 cm; Wt 80.0 kg
[~2017-01-29 13:12] MED LIST changes: -ACET300T2 PO; -AMOX500C PO; -COMMODE 3-IN-11 MIS; +CPMMACHINE; +DIPH25CA PO; -MECL-62 PO; -ROBA750T PO; -WALKER WHEELS/F1 MIS
[2017-01-29 13:15] VITALS: BP 174/74; PULSE 80; RESP 16; TEMP 98.5; O2SAT 98
--- NOTE | 2017-01-29 14:31 | PD ---
HPI Chief Complaint: Fall Time Seen by Provider: 14:18 Travel History International Travel<30 days: No Contact w/Intl Traveler<30days: No Traveled to known affect area: No History of Present Illness HPI 66-year-old female presents to the emergency department after a fall that occurred today. Patient states that she was in the parking lot and tripped over a stump landing on her left elbow and wrist, and shoulder. Patient states she also fell on her right knee and wrist is having pain today. Patient states that the base of her left thumb is painful. States the pain increases with palpation. Denies numbness or tingling. Patient has full range of motion of her extremities without significant pain but she is here to "make sure that nothing is broken". Patient denies chronic medical conditions or chronic medication use. Patient is not a blood thinner. Patient reports a left TKA 2 months ago. Patient denies head trauma, loss of consciousness, blurred vision, neck pain or back pain. States her knees are a little tender but is able to walk as usual without pain. PFSH Past Medical History Arthritis: Yes Cancer: No Cardiovascular Problems: No Diabetes: No (pt denies, record shows borderline) Diminished Hearing: No Endocrine: No Genitourinary: No Hepatitis: No Hiatal Hernia: No Hypertension: Yes Immune Disorder: No Musculoskeletal: Yes (bone on bone in knees, denies arthritis, record shows OA) Neurologic: No Psychiatric: Yes (anxious) Respiratory: No (pt denies any however rx list from dr morris shows inhaler) Thyroid Disease: No ?: Not Dilation and Curettage (D&C): Yes Tubal Ligation: Yes Past Surgical History Abdominal Surgery: No AICD: No Cardiac Surgery: No Ear Surgery: No Endocrine Surgery: No Eye Surgery: No Genitourinary Surgery: No Gynecologic Surgery: Yes (tubal ligation) Joint Replacement: Yes (RIGHT TOTAL KNEE) Oral Surgery: Yes (2 teeth pulled and upper partial) Pacemaker: No Thoracic Surgery: No Other Surgery: Yes (FISTULA REPAIR) Social History Alcohol Use: No Tobacco Use: No Substance Use: No Allergies-Medications (Allergen,Severity, Reaction): Coded Allergies: Fish Containing Products (Verified Allergy, Severe, Anaphylaxis, 01/29/17) Iodinated Contrast- Oral and IV Dye (Unverified Allergy, Severe, Anaphylaxis, 01/29/17) Sulfa (Sulfonamide Antibiotics) (Unverified Allergy, Severe, Hives, ) banana (Verified Allergy, Severe, Anaphylaxis, 01/29/17) codeine (Unverified Allergy, Severe, Anaphylaxis, 01/29/17) iodine (Unverified Allergy, Severe, Anaphylaxis, 01/29/17) latex (Verified Allergy, Severe, rash, 01/29/17) potassium iodide (Unverified Allergy, Severe, Anaphylaxis, 01/29/17) povidone-iodine (Unverified Allergy, Severe, Anaphylaxis, 01/29/17) sodium iodide (Unverified Allergy, Severe, Anaphylaxis, 01/29/17) sodium iodide (Unverified Allergy, Severe, Anaphylaxis, 01/29/17) aspirin (Unverified Allergy, Unknown, 01/29/17) marie (Verified Allergy, Unknown, rash, 01/29/17) all green beans beta-carotene (Unverified Allergy, Unknown, 01/29/17) carrot (Unverified Allergy, Unknown, 01/29/17) shellfish derived (Unverified Allergy, Unknown, LIP SWELLING, 01/29/17) anything in the ocean per patient Reported Meds & Prescriptions Reported Meds & Active Scripts Active Reported Diphenhydramine (Diphenhydramine HCl) 25 Mg Cap 25 Mg PO Q4H PRN Ventolin Hfa 18 GM Inh (Albuterol Sulfate) 90 Mcg/Act Aer 2 Puff INH Q4H PRN Triamterene-Hydrochlorothiazide 75-50 Mg Tab 1 Tab PO DAILY Indomethacin 25 Mg Cap 25 Mg PO TID Take with food, milk, or antacids to decrease stomach adverse effects. Epinephrine Inj (Epinephrine) 0.3 Mg/0.3 Ml Pfpen 0.3 Mg IM ONCE PRN Review of Systems Except as stated in HPI: all other systems reviewed are Neg Physical Exam Narrative GENERAL: Well-developed well-nourished in no apparent distress SKIN: Focused skin assessment warm/dry. HEAD: Atraumatic. Normocephalic. EYES: Pupils equal and round. No scleral icterus. No injection or drainage. EOMI ENT: No nasal bleeding or discharge. Mucous membranes pink and moist. NECK: Trachea midline. No JVD. No midline tenderness CARDIOVASCULAR: Regular rate and rhythm. No murmur appreciated. RESPIRATORY: No accessory muscle use. Clear to auscultation. Breath sounds equal bilaterally. MUSCULOSKELETAL: No obvious deformities. No clubbing. No cyanosis. No edema. Left hand-minor abrasions to the palmar aspect of hand and wrist. Left wrist- no crepitus or deformities. TTP over thumb base Left elbow- mild TTP to lateral aspects without crepitus or deformities. Left Shoulder-mild TTP to the superior aspect and trapezius muscles, full range of motion Right knee-small abrasion to the anterior aspect. No deformities. Full range of motion. Left knee-no deformities. No ecchymosis. All neurovascularly intact BACK: No CVA tenderness. No rash. No point tenderness on palpation of the spine. NEUROLOGICAL: Awake and alert. No obvious cranial nerve deficits. Motor grossly within normal limits. Normal speech. PSYCHIATRIC: Appropriate mood and affect; insight and judgment normal. Data Data Last Documented VS Vital Signs Date Time Temp Pulse Resp B/P (MAP) Pulse Ox O2 Delivery O2 Flow Rate FiO2 01/29/17 17:47 01/29/17 13:15 98.5 80 16 98 Orders Orders Shoulder, Complete (>2vws) (01/29/17 ) Elbow, Complete (4 Vws) (01/29/17 ) Hand, Complete ([id number]) (01/29/17 ) Support Splint (01/29/17 16:22) Ed Discharge Order (01/29/17 16:58) [facility] Medical Decision Making Medical Screen Exam Complete: Yes Emergency Medical Condition: Yes Differential Diagnosis Hand abrasion, shoulder sprain, knee abrasion Narrative Course 66-year-old female presents to the emergency department after falling occurred today. Patient states that she was in the parking lot and tripped over a stump landing on her left elbow and wrist, and shoulder. Patient states she also fell on her right knee and wrist is having pain today. Patient states that the base of her left thumb is painful. States the pain increases with palpation. Denies numbness or tingling. Patient has full range of motion of her extremities without significant pain but she is here to "make sure that nothing is broken". patient denies chronic medical conditions or chronic medication use. Patient is not a blood thinner. Patient reports a left TKA 2 months ago. Patient denies head trauma, loss of consciousness, blurred vision, neck pain or back pain. States her knees are a little tender but is able to walk as usual without pain. Vital signs stable Physical exam findings without obvious fracture deformity. Last Impressions Shoulder X-Ray 01/29/17 0000 Signed Impressions: Service Date/Time: Sunday, January 29, 2017 15:21 - CONCLUSION: 1. No acute fracture or dislocation. 2. Mild degenerative change. 3. Calcific tendinosis. Johnny Bridges MD Hand X-Ray 01/29/17 0000 Signed Impressions: Service Date/Time: Sunday, January 29, 2017 15:07 - CONCLUSION: 1. Small osseous fragment along the radial aspect of the proximal fourth middle phalanx may reflect a small avulsion fracture. Correlation with physical exam is recommended. Johnny Bridges MD Elbow X-Ray 01/29/17 0000 Signed Impressions: Service Date/Time: Sunday, January 29, 2017 15:12 - CONCLUSION: 1. No acute fracture or dislocation. Johnny Bridges MD Incidental finding on the hand x-ray was demonstrated and explained to the patient. Patient denies to have pain in the area. Patient is ready to go home and appreciates the care she has received today. Patient follows a primary care physician regularly and states she will follow up as recommended. Patient to return to the emergency department for worsening or persistent symptoms. Diagnosis Primary Impression: Abrasion of right knee Qualified Codes: S80.211A - Abrasion, right knee, initial encounter Additional Impressions: Shoulder sprain Qualified Codes: S43.402A - Unspecified sprain of left shoulder joint, initial encounter Elbow contusion Qualified Codes: S50.02XA - Contusion of left elbow, initial encounter Hand abrasion Qualified Codes: S60.512A - Abrasion of left hand, initial encounter Referrals: Primary Care Physician Additional Instructions: Use ice or heat for symptom relief. Elevate the joint above the heart to reduce swelling. You may use compression with Vik wrap or similar to reduce swelling. If symptoms persist or worsen, return to the emergency department. Follow up with your primary care physician within 2 days. Disposition: 01 DISCHARGE HOME Condition: Stable Trinh Antunez Jan 29, 2017 14:31
--- NOTE | 2017-01-29 15:42 | RADRPT ---
EXAM DATE/TIME: 01/29/2017 15:07 [facility] COMPARISON: No previous studies available for comparison. INDICATIONS : Patient complains of left hand pain status post fall this morning. MEDICAL HISTORY : None. SURGICAL HISTORY : None. ENCOUNTER: Initial ACUITY: 1 day PAIN SCORE: 8/10 LOCATION: Left Hand FINDINGS: Small osseous fragment along the radial proximal fourth middle phalanx. Osseous structures are otherw ise intact. Joint spaces are maintained. Soft tissues are unremarkable. CONCLUSION: 1. Small osseous fragment along the radial aspect of the proximal fourth middle phalanx may reflect a small avulsion fracture. Correlation with physical exam is recommended. Johnny Bridges MD on January 29, 2017 at 15:38 Board Certified Radiologist. This report was verified electronically.
--- NOTE | 2017-01-29 15:55 | RADRPT ---
EXAM DATE/TIME: 01/29/2017 15:12 [facility] COMPARISON: No previous studies available for comparison. INDICATIONS : Patient complains of left elbow pain status post fall this morning. MEDICAL HISTORY : None. SURGICAL HISTORY : None. ENCOUNTER: Initial ACUITY: 1 day PAIN SCORE: 8/10 LOCATION: Left Elbow FINDINGS: Multiple view examination of the left elbow demonstrates no soft tissue swelling, joint effusion, or fracture. The osseous structures are in normal alignment. Bony mineralization is normal. CONCLUSION: 1. No acute fracture or dislocation. Johnny Bridges MD on January 29, 2017 at 15:52 Board Certified Radiologist. This report was verified electronically.
--- NOTE | 2017-01-29 15:58 | RADRPT ---
EXAM DATE/TIME: 01/29/2017 15:21 [facility] COMPARISON: No previous studies available for comparison. INDICATIONS : Patient complains of left shoulder pain status post fall this morning. MEDICAL HISTORY : None. SURGICAL HISTORY : None. ENCOUNTER: Initial ACUITY: 1 day PAIN SCORE: 8/10 LOCATION: Left Shoulder FINDINGS: Multiple view examination of the left shoulder demonstrates no evidence of fracture or dislocation. The glenohumeral and acromioclavicular joints are maintained. Mild degenerative changes. Small calcif ied fragment noted cephalad to the humeral head consistent with calcific tendinosis. There is normal range of motion between internal and external rotation. Bony mineralization is normal. CONCLUSION: 1. No acute fracture or dislocation. 2. Mild degenerative change. 3. Calcific tendinosis. Johnny Bridges MD on January 29, 2017 at 15:53 Board Certified Radiologist. This report was verified electronically.
== END 2017-01-29 17:48 | disposition home or self-care (01) ==
LOC: NEPD 13:12
DX: S80.211A Abrasion, right knee, initial encounter (principal); S43.402A Unspecified sprain of left shoulder joint, initial encounter; S50.02XA Contusion of left elbow, initial encounter; S60.512A Abrasion of left hand, initial encounter; W18.09XA Striking against other object with subsequent fall, initial encounter; Y92.481 Parking lot as the place of occurrence of the external cause
CPT/HCPCS: 73030; 73080; 73130; 99284